=== PATIENT | male | born 1950 | race Caucasian/White ===

== ENCOUNTER → 2020-08-04 | Outpatient (REF) | payer MEDICARE, MEDICAID | LOC: M SMT 13:22 | PROVIDERS: ATTEND Urology | DX: N40.1 Benign prostatic hyperplasia with lower urinary tract symptoms (principal) | CPT/HCPCS: 81002; 87086; G0463 ==

== ENCOUNTER → 2020-11-18 | Outpatient (REF) | payer MEDICARE, MEDICAID | LOC: M SMT 17:01 | PROVIDERS: ATTEND Urology | DX: R35.0 Frequency of micturition (principal); N40.1 Benign prostatic hyperplasia with lower urinary tract symptoms | CPT/HCPCS: 87086; G0463 ==

== ENCOUNTER 2020-12-12 08:32 | Day surgery (SDC) | payer MEDICARE, MEDICAID ==
[~2020-12-12] VITALS: Ht 198.1 cm; Wt 156.0 kg
[2020-12-12] VITALS (8 sets, daily range): BP systolic 143–163; BP diastolic 68–91; O2SAT 94
[~2020-12-12 08:32] MED LIST: ACET-683 PO; ACETAMINOPHEN 1000MG 100ML IV BTL (OFIRMEV) (J0131 PER 10MG) As Ordered ONE; BRIM2OPD OD; COSO1SOL3 OD; D31000TA2 PO; FLOM0.4C39 PO; IBUP200C27 PO; INSUHUMDS SC; KETOROLAC 60MG 2ML VIAL As Ordered ONE; LIDOCAINE 1% MDV 20ML VIAL SQ PRN; LIDOCAINE 2% 100MG/5ML SDV (FOR ANES.) As Ordered ONE; LOSA100T50 PO; LR 1,000 ML IV ONE; METF-877 PO; MIDAZOLAM INJ 2MG/2ML VIAL (J2250 PER 1MG) As Ordered ONE; ONDANSETRON 4MG/2ML VIAL As Ordered ONE; PROAAER10 INH; ROCURONIUM BROMIDE 50 MG/5 ML VIAL As Ordered ONE; SUGAMMADEX SODIUM 500 MG/5 ML VIAL (BRIDION) As Ordered ONE; TRES100I SC; [UNRECOGNIZED DRUG - OTHER] OD; ceFAZolin SOD 2 GM in IV 1 EA IV ONE; dexameTHASONE 4 MG/ML 1ML VIAL (J1100 PER 1MG) As Ordered ONE; fentaNYL 100 MCG/2 ML INJECTION (J3010) As Ordered ONE; propofoL 200 MG/20 ML VIAL As Ordered ONE
[2020-12-12] MEDS ORDERED: LIDOCAINE 2% 5ML JELLY UROJET As Ordered ONE (09:18)
[2020-12-12] MEDS ORDERED: HYDROmorphone HCL 2 MG/ML 1ML VIAL (J1170) As Ordered ONE (10:25)
[2020-12-12] MEDS ORDERED: MEPERIDINE INJ 25 MG/ML VIAL (J2175) IV PRN (11:15)
[2020-12-12] MEDS ORDERED: ONDANSETRON 4MG/2ML VIAL IV PRN (11:15)
[2020-12-12] MEDS ORDERED: METOCLOPRAMIDE INJ 10MG/2ML VIAL (J2765 PER 1) IV PRN (11:15)
[2020-12-12] MEDS ORDERED: LR 1,000 ML IV SCH (11:15)
[2020-12-12] MEDS ORDERED: fentaNYL 100 MCG/2 ML INJECTION (J3010) IV PRN (11:15)
[2020-12-12] MEDS: oxyCODONE 5MG TAB PO PRN ×2 (12:03→14:33)
--- NOTE | 2020-12-12 13:02 | ROOPDOC ---
[facility] Report Of Operation Report of Operation DATE OF PROCEDURE: 12/12/20 PREPROCEDURE DIAGNOSES: BPH with Lower Urinary Tract Symptoms POSTPROCEDURE DIAGNOSES: Same PROCEDURE: Cystoscopy, transurethral resection of the prostate using button vaporization SURGEON: Ness Rollins MD MOTOR POOL CLERK: None ANESTHESIA: Gen ESTIMATED BLOOD LOSS: Minimal COMPLICATIONS: None REMARKS: PROCEDURE NOTE: The patient is a 70-year-old gentleman who was seen in the office by Dr. Zepeda or BPH symptoms. Originally he was on Flomax and then Proscar was added but he continued to have significant symptoms. Cystoscopy showed moderate obstructing prostatic urethra with a small median lobe. The patient complained of difficulty emptying and needing to void several times in order to empty completely. He had nocturia 2 and urinated 6-7 times during the day. After all different options, alternatives, risks, benefits were discussed he elected to proceed with a transurethral resection of the prostate and this was set up when I was in town. I discussed the procedure at length with the patient including what to expect both pre-and post-procedurally. Informed consent was obtained in both verbal and written form. DESCRIPTION OF PROCEDURE: The patient was brought into the operating room. Preoperative antibiotics were given and sequential compression devices were in place. Gen. anesthesia was induced. He was then placed in the lithotomy position and careful attention was paid that his pressure points were well-padded and protected. He was then prepped and draped in usual fashion. A 26 [place] resectoscope was placed under direct vision and he only had about a 2 cm prostatic urethra with moderately obstructing lateral lobes and a small median lobe. Upon entering the bladder both ureteral orifices were seen. There was no evidence of stones, erythematous patches, lesions, or other abnormalities. At this point the button was placed and using normal saline and the bipolar machine the prostatic urethra was resected beginning at the median lobe this was then resected in a circumferential fashion back to the verumontanum. At the conclusion of the procedure both ureteral orifices were intact along with the vera montanum. The prostatic urethra was open. There was very minimal bleeding if any. A 22 [place] three-way Crowell catheter was placed and the patient was returned to the recovery room in stable condition. NESS ROLLINS MD Dec 12, 2020 13:02
[2020-12-12] MEDS ORDERED: DEXTROSE 50% 50 ML SYRINGE IV PRN (17:50)
[2020-12-12] MEDS ORDERED: GLUCOSE 4GM CHEW TABLET PO PRN (17:50)
[2020-12-12] MEDS ORDERED: GLUCAGON INJ 1MG VIAL SC PRN (17:50)
[2020-12-12] MEDS ORDERED: IBUPROFEN 600MG TAB PO PRN (17:50)
[2020-12-12] MEDS ORDERED: ALBUTEROL 90 MCG/ACT 8GM HFA INHALER INH PRN (17:50)
[2020-12-12] MEDS ORDERED: ACETAMINOPHEN 500 MG TAB PO PRN (17:50)
[2020-12-12] MEDS: metFORMIN (GLUCOPHAGE) 1000 MG TABLET PO SCH (18:34)
[2020-12-12] MEDS ORDERED: ZIOPTAN OD (18:45)
[2020-12-12] MEDS ORDERED: TRES1INJ SC (18:45)
[2020-12-12] MEDS ORDERED: BRIM0.2S13 OD (18:45)
[2020-12-12] MEDS ORDERED: DORZ1SOL4 OD (18:45)
[2020-12-12] MEDS ORDERED: BYDU1INJ SC (18:46)
[2020-12-12] MEDS: COSOPT OCUMETER PLUS 10ML (DORZOLAMIDE/TIMOLOL) OD SCH (20:53)
[2020-12-12] MEDS: BRIMONIDINE 0.15% OPHTH SOLN 5 ML OD SCH (20:53)
[2020-12-12] MEDS ORDERED: TAMSULOSIN 0.4 MG CAP PO SCH (21:00)
[2020-12-12] MEDS ORDERED: LEVEMIR (INSULIN DETEMIR) 1 UNITS/0.01ML SC SCH (21:00)
[2020-12-12] MEDS ORDERED: LATANOPROST 0.005% OPHTH SOLN 2.5 ML OD SCH (21:00)
[2020-12-12] MEDS ORDERED: HumaLOG INSULIN (NovoLOG) PER UNIT SC SCH (21:00)
[2020-12-13 02:00] VITALS: BP 146/75
[2020-12-13 06:00] VITALS: BP 146/74
[2020-12-13 09:00] VITALS: O2SAT 95
[2020-12-13] MEDS ORDERED: LOSARTAN 50MG TABLET PO SCH (09:00)
[2020-12-13] MEDS ORDERED: VITAMIN D 1,000 INTERNATIONAL UNITS TABLET PO SCH (09:00)
[2020-12-13] MEDS: metFORMIN (GLUCOPHAGE) 1000 MG TABLET PO SCH (09:16)
[2020-12-13] MEDS: HumaLOG INSULIN (NovoLOG) PER UNIT SC SCH ×2 (09:17→13:39)
[2020-12-13] MEDS: BRIMONIDINE 0.15% OPHTH SOLN 5 ML OD SCH (09:18)
[2020-12-13 09:23] VITALS: BP 165/84
[2020-12-13 10:00] VITALS: BP 137/62
[2020-12-13] MEDS: COSOPT OCUMETER PLUS 10ML (DORZOLAMIDE/TIMOLOL) OD SCH (10:40)
[2020-12-13 14:00] VITALS: BP 148/78
[2020-12-15 11:35] LABS: HEP C VIRUS AB INDEX SOURCE PT < 0.0 INDEX (0.0-0.8)
== END 2020-12-13 15:53 | disposition home or self-care (01) ==
LOC: M SDC 08:32 → M MSPAV 16:25 → M SDC 12-13 15:53
PROVIDERS: ATTEND Specialist
DX: N40.1 Benign prostatic hyperplasia with lower urinary tract symptoms (principal); I10 Essential (primary) hypertension; E78.5 Hyperlipidemia, unspecified; E11.9 Type 2 diabetes mellitus without complications; M10.9 Gout, unspecified; K21.9 Gastro-esophageal reflux disease without esophagitis; J45.909 Unspecified asthma, uncomplicated; Z86.718 Personal history of other venous thrombosis and embolism; F41.9 Anxiety disorder, unspecified; F32.9 Major depressive disorder, single episode, unspecified; Z79.899 Other long term (current) drug therapy; Z88.8 Allergy status to other drugs, medicaments and biological substances; Z88.5 Allergy status to narcotic agent; G47.30 Sleep apnea, unspecified
CPT/HCPCS: 36415; 52601; 86803; 87806; J0131; J0690; J1100; J1170; J2250; J2405; J2765; J3010

== ENCOUNTER → 2020-12-23 | Outpatient (REF) | payer MEDICARE, MEDICAID ==
[~2020-12-23] MED LIST changes: -ACETAMINOPHEN 1000MG 100ML IV BTL (OFIRMEV) (J0131 PER 10MG) As Ordered ONE; +BRIM0.2S13 OD; +BYDU1INJ SC; +DORZ1SOL4 OD; -KETOROLAC 60MG 2ML VIAL As Ordered ONE; -LIDOCAINE 1% MDV 20ML VIAL SQ PRN; -LIDOCAINE 2% 100MG/5ML SDV (FOR ANES.) As Ordered ONE; -LR 1,000 ML IV ONE; -MIDAZOLAM INJ 2MG/2ML VIAL (J2250 PER 1MG) As Ordered ONE; -ONDANSETRON 4MG/2ML VIAL As Ordered ONE; -ROCURONIUM BROMIDE 50 MG/5 ML VIAL As Ordered ONE; -SUGAMMADEX SODIUM 500 MG/5 ML VIAL (BRIDION) As Ordered ONE; +TRES1INJ SC; +ZIOPTAN OD; -ceFAZolin SOD 2 GM in IV 1 EA IV ONE; -dexameTHASONE 4 MG/ML 1ML VIAL (J1100 PER 1MG) As Ordered ONE; -fentaNYL 100 MCG/2 ML INJECTION (J3010) As Ordered ONE; -propofoL 200 MG/20 ML VIAL As Ordered ONE
== END ==
LOC: M SMT 16:49
PROVIDERS: ATTEND Urology
DX: N40.1 Benign prostatic hyperplasia with lower urinary tract symptoms (principal)